=== PATIENT | female | born 1965 | race Caucasian/White ===

== ENCOUNTER 2017-01-20 16:13 | Emergency (ER) | payer OTHER ==
[~2017-01-20] VITALS: Ht 170.2 cm; Wt 70.0 kg
[2017-01-20 16:16] VITALS: Ht 170.2 cm; Wt 70.0 kg
[2017-01-20] MEDS ORDERED: HYDROmorphONE 1 MG/ML SYG IV STA (16:26)
[2017-01-20] MEDS ORDERED: ONDANSETRON 4 MG INJ IV STA (16:26)
[2017-01-20] MEDS ORDERED: KETOROLAC 30 MG INJ IV STA (16:26)
[2017-01-20] MEDS ORDERED: SOD CHLORIDE 0.9% 1,000 ML IV STA (16:26)
[2017-01-20 16:48] LABS: ADD SCAN DIFF NO
[2017-01-20 16:50] LABS: BASOPHILS % 0.4 % (0.0-2.0); EOSINOPHILS # 0.1 10^3/ul (0.0-0.5); EOSINOPHILS % 1.5 % (0.0-7.0); HEMATOCRIT 40.8 % (37.0-47.0); HEMOGLOBIN 13.3 g/dl (12.0-16.0); LYMPHOCYTES # 1.3 10^3/ul (0.8-2.9); LYMPHOCYTES % 18.5 % (15.0-51.0); MEAN CORPUSCULAR HEMOGLOBIN 27.9 pg (29.0-33.0); MEAN CORPUSCULAR HGB CONC 32.6 g/dl (32.0-37.0); MEAN CORPUSCULAR VOLUME 85.5 fl (82.0-101.0); MEAN PLATELET VOLUME 9.8 fl (7.4-10.4); MONOCYTE # 0.7 10^3/ul (0.3-0.9); MONOCYTES % 9.4 % (0.0-11.0); NEUTROPHIL # 5.1 10^3/ul (1.6-7.5); NEUTROPHILS % 70.1 % (39.0-77.0); PLATELET COUNT 250 10^3/UL (140-415); RED BLOOD COUNT 4.77 10^6/ul (4.20-5.40); RED CELL DISTRIBUTION WIDTH 13.2 % (11.5-14.5); WHITE BLOOD COUNT 7.3 10^3/ul (4.8-10.8)
[2017-01-20 17:00] LABS: ALBUMIN 4.2 g/dl (3.3-4.9)
[2017-01-20 17:01] LABS: POTASSIUM 3.8 mmol/L (3.5-5.1)
[2017-01-20 17:03] LABS: ALBUMIN/GLOBULIN RATIO 1.31; BILIRUBIN,INDIRECT 1.2 mg/dl (0-1.1); BILIRUBIN,TOTAL 1.2 mg/dl (0.2-1.3); CREATININE 0.79 mg/dl (0.44-1.00); TOTAL PROTEIN 7.4 g/dl (6.1-8.1)
[2017-01-20 17:04] LABS: CALCIUM 9.1 mg/dl (8.4-10.2)
--- NOTE | 2017-01-20 17:13 | RADRPT ---
PROCEDURE: Right Upper Quadrant Ultrasound. CLINICAL INDICATION: Abdominal Pain TECHNIQUE: Multiple real-time images were acquired of the patient's right upper quadrant abdomen a nd retroperitoneum utilizing a high resolution transducer. COMPARISON: None FINDINGS: The liver measures 13.0 cm, and demonstrates normal echogenicity. The main portal vein is patent wit h proper directional flow. There is no intrahepatic biliary ductal dilatation. The extrahepatic comm on bile duct measures 4 mm. The gallbladder is without stones, wall thickening, or pericholecystic fluid. The pancreas is not visualized. The right kidney measures 10.1 cm and demonstrates normal echotexture. There is mild right hydroneph rosis. The visualized abdominal aorta and IVC are grossly unremarkable. IMPRESSION: Mild right hydronephrosis. No cholelithiasis or acute cholecystitis. Normal CBD. RPTAT: EE Physician Jyoit Date Time Electronically viewed and signed by Physician Jyoti on 01/20/2017 17:12 /
--- NOTE | 2017-01-20 18:39 | RADRPT ---
PROCEDURE: CT Abdomen and Pelvis without contrast. CLINICAL INDICATION: Abdominal pain TECHNIQUE: CT scan of the abdomen and pelvis without contrast was performed on a multidetector hig h-resolution CT scanner. Coronal and sagittal reformatted images were obtained from the axial [place] e images. Images were reviewed on a high-resolution PACS workstation. The total exam CTDI equals 9.6 mGy and the total exam DLP equals 540 mGy-cm. COMPARISON: None. FINDINGS: CT abdomen: The lung bases are clear. Bilateral breast implants are noted. The heart size is normal. No pericardial effusion identified. The liver demonstrates normal size and density. No liver mass identified. The gallbladder is unremarkable. There is no intrahepatic or extrahepatic biliary dilatation. The spleen is normal in size. No focal splenic abnormality identified. There is a 3.3 cm hiatal hernia. The stomach is otherwise unremarkable. The pancreas is unremarkable. The adrenal glands appear normal. The studies kidneys enlarged and filled with fluid density. The configuration suggests multiple rou nded fluid collections in the renal pelvis, likely numerous peripelvic cysts. Hydronephrosis cannot be entirely excluded. There are multiple nonobstructive renal calculi, measuring up to 5 mm in the upper pole right kidney and 3 mm in the upper pole left kidney. The ureters appear normal. The aorta is of normal caliber. Aortic vascular calcifications are present. No adenopathy identified. The bowel and mesentery are unremarkable. CT pelvis: The pelvic organs are normal. The pelvic sidewalls and inguinal regions are clear. The sigmoid colon and rectum are remarkable for mild sigmoid diverticulosis. No adenopathy, free fluid or inflammatory change identified. The osseous structures are remarkable for 37 degrees of levoscoliosis of mid lumbar spine.. No osteolytic or osteoblastic lesion is detected. IMPRESSION: 1. Dilated renal pelves, likely due to multiple bilateral parapelvic renal cysts. Hydronephrosis i s not completely excluded. Findings can be further clarified with CT urogram, if clinically indicat ed. 2. A few scattered nonobstructive renal calculi are noted, measuring up to 5 mm. 3. Moderate levoscoliosis of the mid lumbar spine. 4. Small hiatal hernia. No mass, lymphadenopathy, or focal acute inflammatory process is identifie d. 5. Mild sigmoid diverticulosis, without evidence of diverticulitis. RPTAT: QQ .Randy Delgado MD, MD Date Time Electronically viewed and signed by .Randy Delgado MD, MD on 01/20/2017 18:39 .M/
[2017-01-20] MEDS ORDERED: HYDR-902 PO (18:45)
[2017-01-20] MEDS ORDERED: ONDA4TAB14 PO (18:45)
[2017-01-20] MEDS ORDERED: IBUP-1542 PO (18:45)
--- NOTE | 2017-01-20 19:02 | ERD ---
ER Documentation Chief Complaint Date/Time DATE: 01/20/17 TIME: 18:56 Chief Complaint medical clearance for booking c/o flank pain and urine retention HPI Patient is a 51-year-old female with history of kidney stone who presents with abdominal and flank pain. The patient was brought in by police as she is currently in custody. She has right upper quadrant abdominal pain and flank pain. She has had decreased urination. The pain is a sharp pain. She said that it is worse with deep breaths and movement. It is been there for the past few days. The pain is been constant. Upon review of old medical records this is the patient's first visit to the emergency department. She says that her primary doctor is at [facility]. ROS All systems reviewed and are negative except as per history of present illness. Medications Home Meds Active Scripts Ondansetron (Ondansetron Odt) 4 Mg Tab.rapdis, 4 MG PO Q6H Y for NAUSEA AND/OR VOMITING, #10 TAB Prov:MIGUEL MOSELEY MD 01/20/17 Ibuprofen* (Motrin*) 600 Mg Tab, 600 MG PO Q8, #30 TAB Prov:MIGUEL MOSELEY MD 01/20/17 Hydrocodone/Acetaminophen (Vonore 10-325 Tablet) 1 Each Tablet, 1 TAB PO Q6H Y for PAIN, #7 TAB Prov:MIGUEL MOSELEY MD 01/20/17 Allergies Allergies: Uncoded Allergies: sulfa (Allergy, Unknown, 01/20/17) PMhx/Soc Positive for kidney cysts and kidney stones History of Surgery: No Anesthesia Reaction: No Hx Neurological Disorder: No Hx Respiratory Disorders: No Hx Cardiac Disorders: No Hx Psychiatric Problems: No Hx Miscellaneous Medical Probl: No Hx Alcohol Use: No Hx Substance Use: No Hx Tobacco Use: No Smoking Status: Never smoker FmHx Family History: No diabetes Physical Exam Vitals Vital Signs Date Time Temp Pulse Resp B/P Pulse Ox O2 Delivery O2 Flow Rate FiO2 01/20/17 17:39 98.3 94 20 136/74 98 Room Air 01/20/17 16:16 98.2 78 20 136/76 100 Physical Exam Const: Moderate distress secondary to pain Head: Atraumatic Eyes: Normal Conjunctiva ENT: Normal External Ears, Nose and Mouth. Neck: Full range of motion..~ No meningismus. Resp: Clear to auscultation bilaterally Cardio: Regular rate and rhythm, no murmurs Abd: Soft, right upper quadrant abdominal pain with palpation without rebound or guarding Skin: No petechiae or rashes Back: No midline or flank tenderness Ext: No cyanosis, or edema Neur: Awake and alert Psych: Normal Mood and Affect Result Diagram: 01/20/17 1630 01/20/17 1630 Results 24 hrs Laboratory Tests Test 01/20/17 16:30 White Blood Count 7.310^3/ul Red Blood Count 4.7710^6/ul Hemoglobin 13.3g/dl Hematocrit 40.8% Mean Corpuscular Volume 85.5fl Mean Corpuscular Hemoglobin 27.9pg Mean Corpuscular Hemoglobin Concent 32.6g/dl Red Cell Distribution Width 13.2% Platelet Count 99769^3/UL Mean Platelet Volume 9.8fl Neutrophils % 70.1% Lymphocytes % 18.5% Monocytes % 9.4% Eosinophils % 1.5% Basophils % 0.4% Nucleated Red Blood Cells % 0.0/100WBC Neutrophils # 5.110^3/ul Lymphocytes # 1.310^3/ul Monocytes # 0.710^3/ul Eosinophils # 0.110^3/ul Basophils # 0.010^3/ul Nucleated Red Blood Cells # 0.010^3/ul Sodium Level 138mmol/L Potassium Level 3.8mmol/L Chloride Level 104mmol/L Carbon Dioxide Level 23mmol/L Anion Gap 15 Blood Urea Nitrogen 22mg/dl Creatinine 0.79mg/dl Glucose Level 98mg/dl Calcium Level 9.1mg/dl Total Bilirubin 1.2mg/dl Direct Bilirubin 0.00mg/dl Indirect Bilirubin 1.2mg/dl Aspartate Amino Transf (AST/SGOT) 19IU/L Alanine Aminotransferase (ALT/SGPT) 23IU/L Alkaline Phosphatase 72IU/L Total Protein 7.4g/dl Albumin 4.2g/dl Globulin 3.20g/dl Albumin/Globulin Ratio 1.31 Lipase 32U/L Current Medications Medications (Trade) Dose Ordered Sig/Richelle Route PRN Reason Start Time Stop Time Status Last Admin Dose Admin Sodium Chloride (NS) 1,000 ml @ 1,000 mls/hr Q1H STAT IV 01/20/17 16:26 4/30/17 17:25 DC 01/20/17 16:53 Hydromorphone HCl (Dilaudid) 1 mg ONCE STAT IV 01/20/17 16:26 01/20/17 16:27 DC 01/20/17 16:52 Ondansetron HCl (Zofran Inj) 4 mg ONCE STAT IV 01/20/17 16:26 01/20/17 16:27 DC 01/20/17 16:52 Ketorolac Tromethamine (Toradol) 30 mg ONCE STAT IV 01/20/17 16:26 01/20/17 16:27 DC 01/20/17 16:52 Procedures/MDM PROCEDURE: CT Abdomen and Pelvis without contrast. CLINICAL INDICATION: Abdominal pain TECHNIQUE: CT scan of the abdomen and pelvis without contrast was performed on a multidetector high-resolution CT scanner. Coronal and sagittal reformatted images were obtained from the axial source images. Images were reviewed on a high-resolution PACS workstation. The total exam CTDI equals 9.6 mGy and the total exam DLP equals 540 mGy-cm. COMPARISON: None. FINDINGS: CT abdomen: The lung bases are clear. Bilateral breast implants are noted. The heart size is normal. No pericardial effusion identified. The liver demonstrates normal size and density. No liver mass identified. The gallbladder is unremarkable. There is no intrahepatic or extrahepatic biliary dilatation. The spleen is normal in size. No focal splenic abnormality identified. There is a 3.3 cm hiatal hernia. The stomach is otherwise unremarkable. The pancreas is unremarkable. The adrenal glands appear normal. The studies kidneys enlarged and filled with fluid density. The configuration suggests multiple rounded fluid collections in the renal pelvis, likely numerous peripelvic cysts. Hydronephrosis cannot be entirely excluded. There are multiple nonobstructive renal calculi, measuring up to 5 mm in the upper pole right kidney and 3 mm in the upper pole left kidney. The ureters appear normal. The aorta is of normal caliber. Aortic vascular calcifications are present. No adenopathy identified. The bowel and mesentery are unremarkable. CT pelvis: The pelvic organs are normal. The pelvic sidewalls and inguinal regions are clear. The sigmoid colon and rectum are remarkable for mild sigmoid diverticulosis. No adenopathy, free fluid or inflammatory change identified. The osseous structures are remarkable for 37 degrees of levoscoliosis of mid lumbar spine.. No osteolytic or osteoblastic lesion is detected. IMPRESSION: 1. Dilated renal pelves, likely due to multiple bilateral parapelvic renal cysts. Hydronephrosis is not completely excluded. Findings can be further clarified with CT urogram, if clinically indicated. 2. A few scattered nonobstructive renal calculi are noted, measuring up to 5 mm. 3. Moderate levoscoliosis of the mid lumbar spine. 4. Small hiatal hernia. No mass, lymphadenopathy, or focal acute inflammatory process is identified. 5. Mild sigmoid diverticulosis, without evidence of diverticulitis. RPTAT: QQ .Randy Delgado MD, MD Date Time Electronically viewed and signed by .Randy Delgado MD, MD on 01/20/2017 18: 39 Ultrasound of the gallbladder shows no acute cholecystitis per radiology. Patient is a 51-year-old female presents with right-sided abdominal pain and flank pain. She has no sign of obstructing kidney stone. There is no sign of cholecystitis. I doubt appendicitis or bowel obstruction. The patient was given Dilaudid, Toradol, and Zofran. At this point I believe outpatient management is appropriate. I do not believe she requires further workup at this time or admission to the hospital. The patient will be discharged into police custody. She was given copies of her laboratory studies and ultrasound and CT scan report prior to discharge. She can return for any worsening symptoms. Departure Diagnosis: Primary Impression: Flank pain Additional Impression: Genitourinary symptoms Condition: Fair Patient Instructions: Flank Pain, Uncertain Cause, Urinary Retention, Female Referrals: Your doctor at [facility] Additional Instructions: Call your primary care doctor TOMORROW for an appointment during the next 1-2 days.See the doctor sooner or return here if your condition worsens before your appointment time. MIGUEL MOSELEY MD Jan 20, 2017 19:02
[2017-01-20] MEDS ORDERED: HYDROmorphONE 2 MG/ML SYG IM STA (19:06)
[2017-01-20 19:21] VITALS: BP 137/72; PULSE 87; RESP 20; TEMP 98.4
[2017-01-20 20:00] LABS: ADD UMIC YES; URINE BILIRUBIN (Dip) NEGATIVE (NEGATIVE); URINE BLOOD (Dip) NEGATIVE (NEGATIVE); URINE COLOR YELLOW (YELLOW); URINE GLUCOSE (Dip) NEGATIVE (NEGATIVE); URINE KETONES (Dip) 40 (NEGATIVE); URINE LEUKOCYTE ESTERASE (Dip) NEGATIVE (NEGATIVE); URINE NITRITE (Dip) NEGATIVE (NEGATIVE); URINE TOTAL PROTEIN (Dip) TRACE (NEGATIVE); URINE UROBILINOGEN (Dip) 0.2 E.U./dL (0.1-1.0)
[2017-01-20 20:15] LABS: BACTERIA,URINE FEW; MUCUS,URINE MANY; URINE RBCS NONE SEEN /HPF (0)
== END 2017-01-20 19:41 ==
LOC: E/R 16:13
DX: R10.9 Unspecified abdominal pain (principal); R39.9 Unspecified symptoms and signs involving the genitourinary system
CPT/HCPCS: 36415; 74176; 76705; 80053; 81001; 83690; 85025; 96372; 96374; 96375; 99285; J1170; J1885; J2405; J7030; 81003